=== PATIENT | female | born 1985 | race Two or more races ===

== ENCOUNTER 2019-02-27 22:54 | Emergency (ER) | payer SELFPAY ==
[~2019-02-27] VITALS: Ht 154.9 cm; Wt 72.6 kg
[2019-02-27] MEDS ORDERED: ALBUTEROL SULF 2.5 MG/0.5ML(0.5%) NEB SOLN NEB ONE (23:15)
[2019-02-27] MEDS ORDERED: IPRATROPIUM BROM 0.5 MG/2.5ML INH SOL NEB ONE (23:15)
[2019-02-28 03:00] VITALS: BP 110/70
== END 2019-02-28 03:57 | disposition left against medical advice (07) ==
LOC: ER 22:58
DX: R06.02 Shortness of breath (principal); Z53.21 Procedure and treatment not carried out due to patient leaving prior to being seen by health care provider
CPT/HCPCS: 94640; 99281; J7611; J7644